=== PATIENT | female | born 1950 | race Caucasian/White ===

== ENCOUNTER → 2016-05-15 07:46 | Outpatient (CLI) | payer OTHER ==
[2015-12-12 14:19] VITALS: BMI 30.1
[~2016-05-15 07:46] MED LIST: ASPIRIN 81 MG E81 MG PO; BREO ELLIPTA 11 EACH INH; CARDIZEM CD180 MG PO; EFFER-K 25 MEQ25 MEQ PO; ELIQUIS5 MG PO; FOLIC ACID0.8 MG PO; HYDROCODONE-APA1 TAB PO; LEVOTHROID112 MCG PO; NORCO 5/325 TAB1 TA1 OR; OMEGA 3 FISH OI1 CAP PO; PLAVIX75 MG PO; PROTONIX40 MG PO; SUPER B COMPLE150 MG PO; TOPROL XL50 MG PO; TUDORZA PRESS400 MCG INH; VENTOLIN HFA18 GM INH; VITAMIN D31000 UNI2 PO; ZEBETA10 MG PO; ZIAC 5/6.25 MG1 TAB PO; ZYRTEC10 MG PO
== END | disposition home or self-care (01) ==
LOC: D.RAD 05-11 08:00
DX: R05 Cough (principal)

== ENCOUNTER 2016-06-27 10:20 | Outpatient (CLI) | payer OTHER ==
[~2016-06-27] VITALS: Ht 160 cm; Wt 77.3 kg
[2016-06-27] MEDS ORDERED: PROAIR HFA8.5 GM INH (10:56)
[2016-06-27 11:09] VITALS: BP 137/69; Ht 160 cm; Wt 77.3 kg
[2016-06-27 11:24] LABS: BASOPHILS 0.4 % (0-2); EOSINOPHILS 4.6 % (0-7); HEMATOCRIT 38.5 % (36.0-48.0); HEMOGLOBIN 11.8 g/dL (12-16); IMMATURE GRANULOCYTES 0.3 % (0-5); LYMPHOCYTES 16.9 % (15-50); MCH 24.2 pg (26.0-34.0); MCHC 30.6 g/dL (31.0-37.0); MCV 79.1 fL (80.0-100.0); MEAN PLATELET VOLUME 9.4 fL (7.4-10.4); MONOCYTES 8.7 % (2-11); NEUTROPHILS 69.1 % (40-80); PLATELET COUNT 218 10x3/uL (130-400); RBC 4.87 10x6/uL (4.00-5.40); RDW 15.8 % (11.5-14.5); WBC 6.9 10x3/uL (4.8-10.8)
[2016-06-27 11:32] LABS: APTT 31.1 SECONDS (22.8-39.4); INR 1.03 (0.85-1.17); PROTIME 13.3 SECONDS (11.6-15.0)
[2016-06-27 11:51] LABS: CALC OSMOLALITY 273 mosm/kg (275-300); CALCIUM 9.8 mg/dL (8.5-10.1); CARBON DIOXIDE 23.7 mmol/L (21.0-32.0); CHLORIDE - SERUM 103 mmol/L (98-107); CREATININE - SERUM 0.7 mg/dL (0.6-1.3); GLUCOSE 98 mg/dL (74-106); POTASSIUM - SERUM 4.7 mmol/L (3.5-5.1); SODIUM 137 mmol/L (136-145); UREA NITROGEN 12 mg/dL (7-18); eGFR NON AFRICAN AMERICAN 89 mL/min (90-120)
--- NOTE | 2016-06-27 13:46 | NUR ---
PROCEDURE CANCELLED, REP FOR PROCEDURE UNAVAILABLE. IV D/C'D, PT TOLERATED. CATHETER INTACT. DR. CATALAN'S OFFICE WILL CONTACT WITH PROCEDURE RESCHEDULE TIME. PT DISCHARGED, AMBULATED WITHOUT ASSIST WITH .
== END 2016-06-27 13:45 | disposition home or self-care (01) ==
LOC: D.OPS 10:20 → D.CT 13:00 → D.OPS 13:00
PROVIDERS: Specialist
DX: R91.1 Solitary pulmonary nodule (principal); Z53.8 Procedure and treatment not carried out for other reasons

== ENCOUNTER 2016-08-03 10:27 | Outpatient (CLI) | payer OTHER ==
[2016-08-03] VITALS (9 sets, daily range): BP systolic 116–146; BP diastolic 48–84; Ht 160 cm; Wt 77.3 kg
[~2016-08-03] VITALS: Ht 160 cm; Wt 77.3 kg
[~2016-08-03 10:27] MED LIST changes: +PROAIR HFA8.5 GM INH
[2016-08-03 11:53] LABS: BASOPHILS 0.2 % (0-2); EOSINOPHILS 5.7 % (0-7); HEMATOCRIT 39.3 % (36.0-48.0); HEMOGLOBIN 11.9 g/dL (12-16); IMMATURE GRANULOCYTES 0.6 % (0-5); LYMPHOCYTES 13.2 % (15-50); MCH 24.1 pg (26.0-34.0); MCHC 30.3 g/dL (31.0-37.0); MCV 79.7 fL (80.0-100.0); MEAN PLATELET VOLUME 9.2 fL (7.4-10.4); MONOCYTES 11.7 % (2-11); NEUTROPHILS 68.6 % (40-80); PLATELET COUNT 208 10x3/uL (130-400); RBC 4.93 10x6/uL (4.00-5.40); RDW 16.3 % (11.5-14.5); WBC 10.6 10x3/uL (4.8-10.8)
[2016-08-03 12:07] LABS: APTT 26.9 SECONDS (22.8-39.4); INR 0.98 (0.85-1.17); PROTIME 12.9 SECONDS (11.6-15.0)
[2016-08-03 12:13] LABS: ANION GAP 11.9 mmol/L (8-16); CALCIUM 9.1 mg/dL (8.5-10.1); POTASSIUM - SERUM 3.9 mmol/L (3.5-5.1)
--- NOTE | 2016-08-03 16:30 | NUR ---
1600-PT ARRIVED TO ROOM. O2 2L VIA NC. IV TO LEFT HAND, NS AT KVO. 2X2 DRESSING WITH OPSITE TO BACK, RIGHT SIDE.
--- NOTE | 2016-08-03 18:41 | NUR ---
PT IN BED ALERT. ATE 100% OF HER DINNER. NO NEEDS AT THIS TIME. WILL CONTINUE TO MONITOR
--- NOTE | 2016-08-04 04:04 | NUR ---
ASSESSMENT COMPLETE, SEE FLOWSHEET, PT SLEEPING, BED IS LOW, SRX2, CALL LIGHT IN REACH, WILL CONTINUE PLAN OF CARE
[2016-08-04 08:00] VITALS: BP 119/56
--- NOTE | 2016-08-04 08:03 | NUR ---
SHIFT ASSESSMENT COMPLETE. A/0 X 4. AMBULATING WITHOUT ASSIST IN ROOM. LUNG SOUNDS ASCULTATED. CLEAR BILATERAL [place]. SMALL DRESSING NOTED TO POSTERIOR UPPER THORAX. C/O NO PAIN OR DISCOMFORT AT THIS TIME. NO NEEDS OR CONCERNS AT THIS TIME. WILL CONTINUE TO MONITOR.
== END 2016-08-04 15:00 | disposition home or self-care (01) ==
LOC: D.OPS 10:27 → D.CT 10:27 → D.M2 15:55 → D.OPS 08-04 15:00
PROVIDERS: Specialist
DX: C34.12 Malignant neoplasm of upper lobe, left bronchus or lung (principal); I25.10 Atherosclerotic heart disease of native coronary artery without angina pectoris; E03.9 Hypothyroidism, unspecified; Z95.5 Presence of coronary angioplasty implant and graft; Z01.812 Encounter for preprocedural laboratory examination

== ENCOUNTER 2016-09-08 08:43 | Emergency (ER) | payer OTHER ==
[2016-08-03 16:59] VITALS: BMI 30.1
[2016-09-08 09:08] LABS: BASOPHILS 0.3 % (0-2); EOSINOPHILS 1.4 % (0-7); HEMATOCRIT 36.2 % (36.0-48.0); HEMOGLOBIN 11.4 g/dL (12-16); IMMATURE GRANULOCYTES 0.4 % (0-5); MCH 24.8 pg (26.0-34.0); MCHC 31.5 g/dL (31.0-37.0); MCV 78.9 fL (80.0-100.0); MEAN PLATELET VOLUME 8.9 fL (7.4-10.4); MONOCYTES 12.6 % (2-11); NEUTROPHILS 78.3 % (40-80); PLATELET COUNT 226 10x3/uL (130-400); RBC 4.59 10x6/uL (4.00-5.40); WBC 15.4 10x3/uL (4.8-10.8)
[2016-09-08 09:25] LABS: ALBUMIN 3.2 g/dL (3.4-5.0); ALKALINE PHOSPHATASE 134 U/L (46-116); ALT (SGPT) 35 U/L (10-68); BILIRUBIN - TOTAL 1.29 mg/dL (0.2-1.3); CALC OSMOLALITY 256 mosm/kg (275-300); CARBON DIOXIDE 23.5 mmol/L (21.0-32.0); CHLORIDE - SERUM 96 mmol/L (98-107); CREATININE - SERUM 0.8 mg/dL (0.6-1.3); GLUCOSE 118 mg/dL (74-106); POTASSIUM - SERUM 3.9 mmol/L (3.5-5.1); SODIUM 128 mmol/L (136-145); UREA NITROGEN 9 mg/dL (7-18); eGFR NON AFRICAN AMERICAN 76 mL/min (90-120)
[2016-09-08 09:28] LABS: CREATINE KINASE 66 UL (21-215); MAGNESIUM - SERUM 1.8 mg/dL (1.8-2.4); TROPONIN-I < 0.017 ng/mL (0.000-0.060)
== END 2016-09-08 11:33 | disposition home or self-care (01) ==
LOC: D.ER 08:43
PROVIDERS: Emergency Medicine
DX: R06.00 Dyspnea, unspecified (principal); R00.0 Tachycardia, unspecified; J40 Bronchitis, not specified as acute or chronic; J44.9 Chronic obstructive pulmonary disease, unspecified; I25.10 Atherosclerotic heart disease of native coronary artery without angina pectoris; I10 Essential (primary) hypertension; Z85.118 Personal history of other malignant neoplasm of bronchus and lung; Z85.850 Personal history of malignant neoplasm of thyroid; R09.89 Other specified symptoms and signs involving the circulatory and respiratory systems; F17.200 Nicotine dependence, unspecified, uncomplicated

== ENCOUNTER 2016-12-07 06:11 | Day surgery (SDC) | payer OTHER ==
[~2016-12-07 06:11] MED LIST changes: -LEVOTHROID112 MCG PO; +SYNTHROID100 MCG PO
[2016-12-07 07:08] LABS: BASOPHILS 0.6 % (0-2); EOSINOPHILS 5.1 % (0-7); HEMATOCRIT 36.1 % (36.0-48.0); HEMOGLOBIN 10.7 g/dL (12-16); IMMATURE GRANULOCYTES 0.5 % (0-5); LYMPHOCYTES 13.7 % (15-50); MCH 23.7 pg (26.0-34.0); MCHC 29.6 g/dL (31.0-37.0); MCV 79.9 fL (80.0-100.0); MEAN PLATELET VOLUME 9.5 fL (7.4-10.4); MONOCYTES 9.3 % (2-11); NEUTROPHILS 70.8 % (40-80); PLATELET COUNT 236 10x3/uL (130-400); RBC 4.52 10x6/uL (4.00-5.40); RDW 16.7 % (11.5-14.5); WBC 8.6 10x3/uL (4.8-10.8)
[2016-12-07 07:17] LABS: APTT 27.4 SECONDS (22.8-39.4); INR 0.98 (0.85-1.17); PROTIME 12.8 SECONDS (11.6-15.0)
[2016-12-07 07:21] LABS: CALC OSMOLALITY 270 mosm/kg (275-300); CALCIUM 9.4 mg/dL (8.5-10.1); CARBON DIOXIDE 23.6 mmol/L (21.0-32.0); CHLORIDE - SERUM 101 mmol/L (98-107); CREATININE - SERUM 0.8 mg/dL (0.6-1.3); GLUCOSE 99 mg/dL (74-106); POTASSIUM - SERUM 4.2 mmol/L (3.5-5.1); SODIUM 135 mmol/L (136-145); UREA NITROGEN 14 mg/dL (7-18); eGFR NON AFRICAN AMERICAN 76 mL/min (90-120)
[2016-12-07 08:17] VITALS: BP 137/51; BMI 32.6
[2016-12-07] MEDS ORDERED: HYDROCODONE-APA1 TAB PO (09:56)
--- NOTE | 2016-12-07 11:18 | NUR ---
PT EATING FULL LIQUID DIET TRAY WELL NO N/V NOTED PIV REMOVED W/ CATHETER TIP INTACT.
--- NOTE | 2016-12-07 11:30 | NUR ---
DC TEACHING COMPLETE W/PRESCRIPT GIVEN TO PT PT VU OF INSTRUCT. ADDED TAPE TO DSG.
--- NOTE | 2016-12-07 11:40 | NUR ---
PT DC HOME IN VIA WC DRIVING
--- NOTE | 2016-12-18 11:14 | OP ---
PATIENT NAME: ZAIN WALKER MEDICAL RECORD: [id number] :52 LOCATION:D.OPS ADMISSION DATE: SURGEON: YIMI MORILLO MD DATE OF OPERATION: 12/07/2016 PREOPERATIVE DIAGNOSES: 1. Right cervical lymphadenopathy. 2. Coronary artery disease. 3. Hypertension. 4. Chronic obstructive pulmonary disease. 5. History of lung cancer. 6. Peripheral vascular disease. POSTOPERATIVE DIAGNOSES: 1. Right cervical lymphadenopathy. 2. Coronary artery disease. 3. Hypertension. 4. Chronic obstructive pulmonary disease. 5. History of lung cancer. 6. Peripheral vascular disease. PROCEDURE: Excisional biopsy of right cervical lymph nodes. SURGEON: Yimi Morillo MD REPORT OF PROCEDURE: The patient's neck was prepped and draped in sterile fashion. A 10 mL of 1% lidocaine with epinephrine was infused into the surrounding tissues and the right inferior neck. Incision was made in the right inferior neck and electrocautery was used to dissect through the subcutaneous tissue and platysma. We encountered the sternocleidomastoid and these fibers and went posterior to this. At this point, we could feel the mass. This mass was very firm and mobile. It was not attached to any of the surrounding tissues. The mass was bluntly removed from the surrounding tissues. At this point, I could inspect the cavity and there was noted that we were very near at the lateral aspect of the trachea. The mass was sent off for a fresh permanent specimen. The wound was then irrigated out with normal saline. There was no sign of any active bleeding. We instilled some Ela into the wound to stop any bleeding in the future. The subcutaneous tissues were then reapproximated with interrupted 3-0 Vicryls and the skin was closed with running subcutaneous 5-0 Monocryl. COMPLICATIONS: None. CONDITION: Stable. ANESTHESIA: Local MAC. BLOOD LOSS: Minimal. TRANSINT:[id number] Voice Confirmation ID: [id number] DOCUMENT ID: [id number] OPERATIVE REPORT [id number] ZAIN WALKER YIMI MORILLO MD at 1114 CC: MILA BOSS DO and PAVEL CANDELARIA MD [id number] DICTATION DATE: 12/07/16 1000 [facility]PER: 12/07/16 1138 [facility] 12/07/16 [facility] [address] [place] [address]
== END 2016-12-07 11:40 | disposition home or self-care (01) ==
LOC: D.OPS 06:11 → D.PAN 12:35 → D.OPS 12:35
PROVIDERS: Anesthesiology; Surgery
DX: R59.0 Localized enlarged lymph nodes (principal); I25.10 Atherosclerotic heart disease of native coronary artery without angina pectoris; I10 Essential (primary) hypertension; J44.9 Chronic obstructive pulmonary disease, unspecified; I73.9 Peripheral vascular disease, unspecified; Z85.118 Personal history of other malignant neoplasm of bronchus and lung; Z01.812 Encounter for preprocedural laboratory examination

== ENCOUNTER 2016-12-21 06:35 | Day surgery (SDC) | payer OTHER ==
[2016-12-21 07:50] VITALS: BP 153/72; BMI 31.9
[2016-12-21] MEDS ORDERED: BREO ELLIPTA 11 EACH INH (07:54)
[2016-12-21 08:32] LABS: HEMATOCRIT 35.5 % (36.0-48.0); HEMOGLOBIN 10.8 g/dL (12-16); MCH 24.1 pg (26.0-34.0); MCHC 30.4 g/dL (31.0-37.0); MCV 79.2 fL (80.0-100.0); MEAN PLATELET VOLUME 9.7 fL (7.4-10.4); PLATELET COUNT 203 10x3/uL (130-400); RBC 4.48 10x6/uL (4.00-5.40); RDW 16.6 % (11.5-14.5); WBC 20.2 10x3/uL (4.8-10.8)
[2016-12-21 08:34] LABS: APTT 24.4 SECONDS (22.8-39.4); INR 0.96 (0.85-1.17); PROTIME 12.7 SECONDS (11.6-15.0)
[2016-12-21 09:08] LABS: EOSINOPHILS 7 % (0-7); LYMPHOCYTES 3 % (15-50); MONOCYTES 8 % (2-11); NEUTROPHILS 75 % (40-80)
[2016-12-21 09:09] LABS: PLATELET ESTIMATE NORMAL
[2016-12-21] MEDS ORDERED: HYDROCODONE-APA1 TAB PO (09:46)
--- NOTE | 2016-12-25 14:51 | OP ---
PATIENT NAME: ZAIN WALKER MEDICAL RECORD: [id number] :52 LOCATION:D.OPS ADMISSION DATE: SURGEON: YIMI MORILLO MD DATE OF OPERATION: 12/21/2016 PREOPERATIVE DIAGNOSES: 1. Small cell lung cancer. 2. Coronary artery disease. 3. Hypertension. 4. Hyperlipidemia. POSTOPERATIVE DIAGNOSES: 1. Small cell lung cancer. 2. Coronary artery disease. 3. Hypertension. 4. Hyperlipidemia. PROCEDURE: 1. Left subclavian vein PowerPort placement. 2. Fluoroscopic interpretation. SURGEON: Yimi Morillo MD OPERATIVE PROCEDURE: The patient's left chest was prepped and draped in sterile fashion. A total of 20 mL of 1% lidocaine with epinephrine was infused into the surrounding tissues. A needle was used to cannulate the left subclavian vein and a guidewire was advanced with ease. Fluoro was used to note that the wire was in good position in the venous system. A skin incision was made on the left superior lateral chest and a subcutaneous pouch was made over the pectoral fascia. The catheter was tunneled between this pouch and the wire exit site. The port was sutured to the pectoral fascia using interrupted 2-0 Prolenes times 2. The catheter was cut with a beveled tip at 24 cm. The dilator trocar device was placed over the wire and the wire and dilator were removed. The catheter tip was advanced through the trocar and the trocar was then removed. The catheter was noted to be resting in good position in the superior vena cava. The catheter aspirated nonpulsatile dark blood and flushed easily with heparinized saline. The subcutaneous tissues were reapproximated with interrupted 3-0 Vicryl and the skin was closed with running subcutaneous 5-0 Monocryl. COMPLICATIONS: None. CONDITION: Stable. ANESTHESIA: General endotracheal and local. BLOOD LOSS: Minimal. TRANSINT:[id number] Voice Confirmation ID: [id number] DOCUMENT ID: [id number] OPERATIVE REPORT [id number] DENISEZAIN YIMI MORILLO MD at 1451 CC: MILA BOSS DO [id number] DICTATION DATE: 12/21/16 0944 [facility] GRADER: 12/21/16 1022 [facility] 12/21/[address] [address]
== END 2016-12-21 10:50 | disposition home or self-care (01) ==
LOC: D.OPS 06:35 → D.PAN 08:30 → D.OPS 09:00 → D.PAN 09:00 → D.OPS 10:50
PROVIDERS: Anesthesiology
DX: C34.90 Malignant neoplasm of unspecified part of unspecified bronchus or lung (principal); I10 Essential (primary) hypertension; I25.10 Atherosclerotic heart disease of native coronary artery without angina pectoris; E78.5 Hyperlipidemia, unspecified; E03.9 Hypothyroidism, unspecified; J44.9 Chronic obstructive pulmonary disease, unspecified; Z01.812 Encounter for preprocedural laboratory examination

== ENCOUNTER → 2017-02-07 15:10 | Outpatient (CLI) | payer OTHER | END | disposition home or self-care (01) | LOC: D.CT 15:10 | DX: C34.32 Malignant neoplasm of lower lobe, left bronchus or lung (principal); D63.8 Anemia in other chronic diseases classified elsewhere; D46.9 Myelodysplastic syndrome, unspecified; D50.9 Iron deficiency anemia, unspecified ==

== ENCOUNTER 2017-05-03 07:51 | Outpatient (CLI) | payer OTHER, MEDICARE ==
[~2017-05-03] VITALS: Ht 160 cm; Wt 78.2 kg
[2017-05-03 10:07] VITALS: BP 145/69; Ht 160 cm; Wt 78.2 kg
== END 2017-05-03 14:00 | disposition home or self-care (01) ==
LOC: D.OPS 07:51 → D.LAB 10:00 → D.OPS 14:00
DX: D64.9 Anemia, unspecified (principal)

== ENCOUNTER 2017-08-08 08:42 | Outpatient (CLI) | payer MEDICARE, OTHER ==
[~2017-08-08] VITALS: Ht 160 cm; Wt 77.3 kg
[2017-08-08 10:44] VITALS: Ht 160 cm; Wt 77.3 kg
== END 2017-08-08 16:45 | disposition home or self-care (01) ==
LOC: D.OPS 08:42
DX: D64.9 Anemia, unspecified (principal); Z01.812 Encounter for preprocedural laboratory examination

== ENCOUNTER 2017-10-30 08:51 | Outpatient (CLI) | payer MEDICARE, OTHER ==
[~2017-10-30] VITALS: Ht 160 cm; Wt 69.1 kg
[2017-10-30 09:14] LABS: BASOPHILS 0.3 % (0-2); EOSINOPHILS 14.7 % (0-7); HEMATOCRIT 36.4 % (36.0-48.0); HEMOGLOBIN 11.9 g/dL (12-16); IMMATURE GRANULOCYTES 0.1 % (0-5); LYMPHOCYTES 6.7 % (15-50); MCH 30.6 pg (26.0-34.0); MCHC 32.7 g/dL (31.0-37.0); MCV 93.6 fL (80.0-100.0); MEAN PLATELET VOLUME 8.7 fL (7.4-10.4); MONOCYTES 8.8 % (2-11); NEUTROPHILS 69.4 % (40-80); PLATELET COUNT 170 10x3/uL (130-400); RBC 3.89 10x6/uL (4.00-5.40); RDW 15.4 % (11.5-14.5); WBC 7.9 10x3/uL (4.8-10.8)
[2017-10-30 09:21] LABS: INR 1.12 (0.85-1.17)
[2017-10-30 09:22] LABS: APTT 34.9 SECONDS (22.8-39.4)
[2017-10-30] MEDS ORDERED: SUPER B COMPLE150 MG PO (10:22)
[2017-10-30] MEDS ORDERED: VENTOLIN HFA18 GM INH (10:22)
[2017-10-30] MEDS ORDERED: IPRAT-ALBUT 0.5-3 ML UPD (10:23)
[2017-10-30 10:31] VITALS: Ht 160 cm; Wt 69.1 kg
[2017-10-31 20:09] LABS: ACID FAST SMEAR Negative (()); AFB SPECIMEN PROCESSING Concentration (())
[2017-11-01 14:23] LABS: FUNGUS STAIN Final report (())
== END 2017-10-30 16:00 | disposition home or self-care (01) ==
LOC: D.OPS 08:51
PROVIDERS: Internal Medicine Pulmonary Disease
DX: J18.9 Pneumonia, unspecified organism (principal); R05 Cough; C34.90 Malignant neoplasm of unspecified part of unspecified bronchus or lung; J44.9 Chronic obstructive pulmonary disease, unspecified; G47.36 Sleep related hypoventilation in conditions classified elsewhere; J30.9 Allergic rhinitis, unspecified; Z01.812 Encounter for preprocedural laboratory examination